=== PATIENT | female | born 1990 | race Caucasian/White ===

== ENCOUNTER 2018-12-03 21:01 | Emergency (ER) | payer BC ==
[~2018-12-03] VITALS: Ht 157.5 cm; Wt 98.2 kg
--- NOTE | 2018-12-03 21:03 | NUR ---
NIL WHEN CALLED FOR TRIAGE; REG REPORTS SHE WALKED INTO [facility].
[2018-12-03 21:08] VITALS: BP 148/85
[2018-12-03] MEDS ORDERED: FAMOTIDINE 20 MG TABLET ONE (21:44)
--- NOTE | 2018-12-03 21:47 | NUR ---
PT HERE FOR [facility]. PT REPORTS USING NEW SHAMPOO AND CONDITIONER AND BREAKING OUT AFTERWARDS. PT DENIES SOB. PT HAS HIVES ON TORSO. PT RESTING IN BED AND MEDICATED.
[2018-12-03] MEDS ORDERED: FAMOTIDINE 20 MG TABLET PO ONE (22:00)
== END 2018-12-03 22:48 ==
LOC: ED 22:42
DX: L50.0 Allergic urticaria (principal)
CPT/HCPCS: 99283; J7512

== ENCOUNTER 2018-12-05 23:46 | Emergency (ER) | payer BC ==
[~2018-12-05] VITALS: Ht 157.5 cm; Wt 95.0 kg
[2018-12-05 23:51] VITALS: BP 170/100
--- NOTE | 2018-12-06 00:01 | NUR ---
PT. SEEN HERE FOR SAME ON SUNDAY; AT THAT TIME PT. HAS RASH TO BRA LINE AND PANTY LINE AND SCALP. THE BODY RASH HAS RESOLVED BUT C/O ITCHING AND RASH TO SCALP LINE. HAS BEEN TAKING ALL MEDS ORDERED. PT. VERY TEARFUL. PT. STATES "MY THROAT IS VERY ITCHY AND IT FEELS LIKE IT IS CLOSING UP." PT. SPEAKING IN FULL SENTENCES AND MAINTAINING OWN AIRWAY. ALREADY TOOK PREDNISONE, PEPCID, AND BENADRYL MANUFACTURER REPRESENTATIVE. ALTAF PRADO IN TO EVAL PT. AND DISCUSS POC.
[2018-12-07] MEDS ORDERED: DIPH25CA61 PO (04:19)
[2018-12-07] MEDS ORDERED: FAMO-79 PO (04:20)
== END 2018-12-06 00:39 | disposition home or self-care (01) ==
LOC: ED 23:59
DX: L24.9 Irritant contact dermatitis, unspecified cause (principal)
CPT/HCPCS: 99283

== ENCOUNTER 2018-12-07 04:11 | Emergency (ER) | payer BC ==
[~2018-12-07] VITALS: Ht 157.5 cm; Wt 96.6 kg
[2018-12-07] MEDS ORDERED: DIPH25CA61 PO (04:19)
[2018-12-07] MEDS ORDERED: FAMO-79 PO (04:20)
--- NOTE | 2018-12-07 04:32 | NUR ---
PT PRESENTED WITH C/O ALLERGIC REACTION, PT WAS SEEN HERE AND AND SENT HOME WITH PEPCID, BENADRYL, AND PREDNISONE. PT STATED ON WHEN SEEN HERE ERP TOLD HER TO STOP TAKING PREDNISONE. PT NOTED TO HIVES, SWALLON BOTTOM LIP, AND C/O ITCHING. MONITORS APPLIED, SIDERAILS UP X2, CALL LIGHT WITHIN REACH. PA AT BEDSIDE FOR EVAL
[2018-12-07] MEDS ORDERED: DIPHENHYDRAMINE 50 MG/ML, 1ML ONE (04:51)
[2018-12-07] MEDS ORDERED: EPINEPHRINE 1 MG/ML, 1ML ONE (04:52)
[2018-12-07] MEDS ORDERED: FAMOTIDINE 20 MG TABLET ONE (04:53)
[2018-12-07] MEDS ORDERED: ALBUTEROL/IPRATROPIUM 2.5MG/0.5MG, 3 ML NEB ONE (05:00)
[2018-12-07] MEDS ORDERED: FAMOTIDINE 20 MG TABLET PO ONE (05:00)
[2018-12-07] MEDS ORDERED: DIPHENHYDRAMINE 50 MG/ML, 1ML IM ONE (05:00)
[2018-12-07] MEDS ORDERED: EPINEPHRINE 1 MG/ML, 1ML SQ ONE (05:00)
--- NOTE | 2018-12-07 05:00 | NUR ---
PT MEDICATED PER MAR
--- NOTE | 2018-12-07 05:03 | NUR ---
RT CALLED FOR RESPIRATORY T/X
[2018-12-07] MEDS ORDERED: ALBUTEROL/IPRATROPIUM 2.5MG/0.5MG, 3 ML ONE (05:08)
--- NOTE | 2018-12-07 05:57 | NUR ---
PT SITTING UP ON GURNEY, STATED " MY THROAT FEELS TIGHT AGAIN, JUST LIKE LAST TIME I WAS ON PRED",NOTED [id number]%, RESPIRATIONS EVEN AND UNLABORED. PA UPDATED, PA AT PT'S BEDSIDE FOR REEVAL
--- NOTE | 2018-12-07 07:02 | NUR ---
REPORT GIVEN TO BELLA ALVAREZ
[2018-12-07 07:15] VITALS: BP 139/78
--- NOTE | 2018-12-07 07:19 | NUR ---
pt reports improved sensation of throat tightness, no acute s/s of distress, vss
== END 2018-12-07 08:20 | disposition home or self-care (01) ==
LOC: ED 05:31
DX: L50.9 Urticaria, unspecified (principal)
CPT/HCPCS: 94640; 96372; 99283; J0171; J1200; J7512; J7620